=== PATIENT | male | born 1975 | race Caucasian/White ===

== ENCOUNTER 2017-11-14 12:04 | Emergency (ER) | payer SELFPAY ==
[~2017-11-14] VITALS: Ht 182.9 cm; Wt 94.9 kg
[2017-11-14] MEDS ORDERED: HYDROcodone/APAP 5/325 TABLET PO ONE (13:00)
[2017-11-14] MEDS ORDERED: KETOROLAC 30 MG/1 ML IM ONE (13:00)
[2017-11-14] MEDS ORDERED: KETOROLAC 30 MG/1 ML ONE (13:02)
[2017-11-14] MEDS ORDERED: HYDROcodone/APAP 5/325 TABLET ONE (13:02)
[2017-11-14 13:13] LABS: BASOPHILS # (AUTO) 0.03 x10^3/uL (0-0.1); BASOPHILS % (AUTO) 1 % (0-1); EOSINOPHILS # (AUTO) 0.14 x10^3/uL (0-0.4); EOSINOPHILS % (AUTO) 3 % (1-7); LYMPHOCYTES # (AUTO) 1.71 x10^3/uL (1-3.4); LYMPHOCYTES % (AUTO) 32 % (22-44); MD NO; MEAN CORPUSCULAR HEMOGLOBIN 32.9 pg (27.5-34.5); MEAN CORPUSCULAR HGB CONC 34.1 g/dL (33.2-36.2); MEAN CORPUSCULAR VOLUME 96.4 fL (81-97); MEAN PLATELET VOLUME 9.9 fL (7.4-10.4); MONOCYTES # (AUTO) 0.37 x10^3/uL (0.2-0.8); MONOCYTES % (AUTO) 7 % (2-9); NEUTROPHILS # (AUTO) 3.11 x10^3/uL (1.8-6.8); NEUTROPHILS % (AUTO) 58 % (42-75); PLATELET COUNT 194 x10^3/uL (130-400); RED BLOOD COUNT 4.68 x10^6/uL (4.38-5.82); RED CELL DISTRIBUTION WIDTH 12.8 % (9.4-14.8)
[2017-11-14 13:14] LABS: MICROSCOPIC NOT IND
[2017-11-14 13:18] LABS: CULTURE INDICATED? NO
[2017-11-14 13:23] LABS: ALANINE AMINOTRANSFERASE 32 U/L (12-78); ALBUMIN 3.8 g/dL (3.4-5.0); ANION GAP 8 mmol/L (5-15); CALCIUM 8.5 mg/dL (8.5-10.1); CHLORIDE 108 mmol/L (98-107); CREATININE 0.99 mg/dL (0.7-1.3)
[2017-11-14 13:25] LABS: ALKALINE PHOSPHATASE 53 U/L (45-117); BILIRUBIN,TOTAL 0.8 mg/dL (0.2-1.0); TOTAL PROTEIN 7.1 g/dL (6.4-8.2)
[2017-11-14 15:04] VITALS: BP 115/59
== END 2017-11-14 15:07 | disposition home or self-care (01) ==
LOC: ED 13:43
DX: K59.00 Constipation, unspecified (principal)
CPT/HCPCS: 36415; 74176; 80053; 81003; 83605; 85025; 96372; 99285; J1885

== ENCOUNTER 2018-01-09 13:21 | Emergency (ER) | payer OTHER ==
[~2018-01-09] VITALS: Ht 180.3 cm; Wt 90.0 kg
[2018-01-09 13:28] VITALS: BP 112/70
[2018-01-09] MEDS ORDERED: FLUORESCEIN OPHTHALMIC 1 MG STRIP ONE (14:09)
[2018-01-09] MEDS ORDERED: PROPARACAINE OPHTH 0.5%, 15ML ONE (14:09)
[2018-01-09] MEDS ORDERED: FLUORESCEIN OPHTHALMIC 1 MG STRIP EACHEYE ONE (14:30)
[2018-01-09] MEDS ORDERED: PROPARACAINE OPHTH 0.5%, 15ML EACHEYE ONE (14:30)
== END 2018-01-09 14:57 | disposition home or self-care (01) ==
LOC: ED 14:30
DX: S05.01XA Injury of conjunctiva and corneal abrasion without foreign body, right eye, initial encounter (principal); Z87.891 Personal history of nicotine dependence; W25.XXXA Contact with sharp glass, initial encounter; Y93.89 Activity, other specified; Y92.89 Other specified places as the place of occurrence of the external cause; Y99.8 Other external cause status
CPT/HCPCS: 99283

== ENCOUNTER 2019-12-01 08:17 | Emergency (ER) | payer MEDICAID, OTHER ==
[~2019-12-01] VITALS: Ht 180.3 cm; Wt 97.9 kg
[~2019-12-01 08:17] MED LIST: AMOX1TAB64 PO; DOXY100C PO
[2019-12-01 08:20] VITALS: BP 131/78
[2019-12-01] MEDS ORDERED: FLUORESCEIN OPHTHALMIC 1 MG STRIP ONE (08:45)
[2019-12-01] MEDS ORDERED: FLUORESCEIN OPHTHALMIC 1 MG STRIP EACHEYE ONE (09:00)
[2019-12-01] MEDS ORDERED: PROPARACAINE OPHTH 0.5%, 15ML EACHEYE ONE (09:00)
[2019-12-01] MEDS ORDERED: DIPH,PERTUSS(ACELL),TET VAC/PF 0.5 ML IM-VACC ONE ×2 (09:11→09:30)
--- NOTE | 2019-12-01 09:26 | NUR ---
task RN note: report taken from SAMIRA Weldon. tdap admin per emar, pt tolerated well. pt given dc instructions and script, educated regarding eye drop rx. pt a&o, resps even and unlabored, nadn. pt amb to dc desk with steady gait. all questions answered.
== END 2019-12-01 09:25 | disposition home or self-care (01) ==
LOC: ED 08:40
DX: S05.02XA Injury of conjunctiva and corneal abrasion without foreign body, left eye, initial encounter (principal); X58.XXXA Exposure to other specified factors, initial encounter; Y93.89 Activity, other specified; Y92.89 Other specified places as the place of occurrence of the external cause; Y99.8 Other external cause status
CPT/HCPCS: 90471; 90715

== ENCOUNTER 2020-02-27 11:41 | Inpatient (IN) | payer MEDICAID ==
[~2020-02-27] VITALS: Ht 180.3 cm; Wt 98.7 kg
--- NOTE | 2020-02-27 12:07 | NUR ---
PATIENT ARRIVES TO HOSPITAL WITH SOB THAT BEGAN TODAY. HE STATES HE HAS SOME ANXIETY ABOUT COMING TO HOSPITAL. PATIENT TALKS COMPLETE SENTENCES, AND 100% ON ROOM AIR, [place] AT 22.
[2020-02-27] MEDS ORDERED: CYPIONATE (12:14)
[2020-02-27 12:33] LABS: BASOPHILS # (AUTO) 0.06 x10^3/uL (0-0.1); BASOPHILS % (AUTO) 1 % (0-1); EOSINOPHILS # (AUTO) 0.17 x10^3/uL (0-0.4); EOSINOPHILS % (AUTO) 3 % (1-7); LYMPHOCYTES # (AUTO) 2.27 x10^3/uL (1-3.4); LYMPHOCYTES % (AUTO) 34 % (22-44); MD NO; MEAN CORPUSCULAR HEMOGLOBIN 32.9 pg (27.5-34.5); MEAN CORPUSCULAR HGB CONC 33.5 g/dL (33.2-36.2); MEAN CORPUSCULAR VOLUME 98.2 fL (81-97); MEAN PLATELET VOLUME 9.6 fL (7.4-10.4); MONOCYTES # (AUTO) 0.45 x10^3/uL (0.2-0.8); MONOCYTES % (AUTO) 7 % (2-9); NEUTROPHILS # (AUTO) 3.81 x10^3/uL (1.8-6.8); NEUTROPHILS % (AUTO) 56 % (42-75); PLATELET COUNT 215 x10^3/uL (130-400); RED BLOOD COUNT 5.42 x10^6/uL (4.38-5.82); RED CELL DISTRIBUTION WIDTH 13.3 % (9.4-14.8)
--- NOTE | 2020-02-27 12:40 | NUR ---
patient states no pain at this time.
[2020-02-27 12:43] LABS: ALBUMIN 3.5 g/dL (3.4-5.0); ANION GAP 7 mmol/L (5-15); CALCIUM 8.6 mg/dL (8.5-10.1); CHLORIDE 107 mmol/L (98-107); CREATININE 1.49 mg/dL (0.7-1.3)
[2020-02-27 12:51] LABS: TROPONIN I 0.222 ng/mL (0.000-0.045)
--- NOTE | 2020-02-27 12:51 | NUR ---
critical trope 0.22 reported to Kun Luna
--- NOTE | 2020-02-27 14:00 | NUR ---
UPDATED ISOLATION STATUS DROPLET CO19 R/O. DENIES PAIN NOW. IN BED RAILS UP.
[2020-02-27] MEDS ORDERED: ONDANSETRON ODT 4 MG PO PRN (15:30)
[2020-02-27] MEDS ORDERED: ENALAPRILAT 1.25 MG/ML, 2ML IVPush PRN (15:30)
[2020-02-27] MEDS ORDERED: ACETAMINOPHEN 325 MG TABLET PO PRN (15:30)
[2020-02-27] MEDS ORDERED: ONDANSETRON 2MG/ML, 2ML IVPush PRN (15:30)
[2020-02-27] MEDS ORDERED: GUAIFENESIN/DM 200-20MG, 10ML UDC PO PRN (15:30)
[2020-02-27] MEDS ORDERED: ENOXAPARIN 40 MG/0.4 ML ONE (15:41)
[2020-02-27] MEDS: ENOXAPARIN 40 MG/0.4 ML SQ SCH (15:46)
[2020-02-27] MEDS ORDERED: MORPHINE SULFATE 4 MG/ML, 1ML ONE ×2 (15:56→19:47)
[2020-02-27] MEDS: morphine SULFATE 10 MG/ML, 1ML IVPush PRN ×2 (15:57→19:53)
[2020-02-27] MEDS ORDERED: CEFTRIAXONE 1,000 MG IV SCH (16:00)
--- NOTE | 2020-02-27 16:02 | NUR ---
patient taken to ct scan. patient having all over body pain and chest pain, requested medication to help him relax and stop pain, medicated prn.
[2020-02-27 16:17] LABS: TROPONIN I 0.227 ng/mL (0.000-0.045)
[2020-02-27] MEDS ORDERED: OMNIPAQUE 350 MG/ML, 100ML BOTTLE ONE (16:19)
[2020-02-27] MEDS ORDERED: CEFTRIAXONE PMX 1GM/50ML 50 ML ONE (16:32)
--- NOTE | 2020-02-27 16:42 | NUR ---
FEELS IMPROVED PAIN NOW IS A 3 OF 10. IN BED, MEDICATED. AWAITING ROOM
--- NOTE | 2020-02-27 18:07 | NUR ---
cardiac diet given
--- NOTE | 2020-02-27 18:11 | NUR ---
ATE ALL OF DIET TRAY. CALM. FEELS IMPROVED
--- NOTE | 2020-02-27 18:54 | NUR ---
REPORT RECEIVED FROM SAMIRA WEST. PLAN OF CARE DISCUSSED
--- NOTE | 2020-02-27 18:55 | NUR ---
report to Tiara HOGAN
--- NOTE | 2020-02-27 20:00 | NUR ---
PATIENT MEDICATED PER EMAR FOR BREAKTHROUGH PAIN. TOLERATED WELL. VSS, NADN
[2020-02-27] MEDS: FAMOTIDINE 20 MG TABLET PO SCH (21:00)
--- NOTE | 2020-02-27 21:11 | NUR ---
PATIENT RESTING, RESPIRATIONS EVEN AND UNLABORED, VSS, NADN
--- NOTE | 2020-02-27 21:28 | NUR ---
THIS RN SPOKE WITH CHANO, RN E [employer] AND [facility] ADMITTING TEAM ABOUT RAPID COVID BEING NEGATIVE. [facility] ADMITTING MD STATES "[place] OF BEING COVID POSITIVE IS VERY LOW" AND FEELS COMFORTABLE SENDING PATIENT TO REGULAR NON-COVID R/O FLOOR. THROUGHPUT RN NOTIFIED. Addendum: 02/27/20 at 2130 by ANDERSON PATIENT IS NONFEBRILE AND ASYMPTOMATIC.
[2020-02-27] MEDS ORDERED: FAMOTIDINE 20 MG TABLET ONE (21:45)
[2020-02-27 22:05] LABS: TROPONIN I 0.238 ng/mL (0.000-0.045)
--- NOTE | 2020-02-27 22:10 | NUR ---
REPORT GIVEN TO SAMIRA DU. PLAN OF CARE DISCUSSED
[2020-02-27 22:29] VITALS: BP 97/58
[2020-02-28 01:29] VITALS: BP 117/81
[2020-02-28 06:37] LABS: BASOPHILS # (AUTO) 0.07 x10^3/uL (0-0.1); BASOPHILS % (AUTO) 1 % (0-1); EOSINOPHILS # (AUTO) 0.18 x10^3/uL (0-0.4); EOSINOPHILS % (AUTO) 2 % (1-7); LYMPHOCYTES # (AUTO) 2.69 x10^3/uL (1-3.4); LYMPHOCYTES % (AUTO) 32 % (22-44); MD NO; MEAN CORPUSCULAR HGB CONC 33.5 g/dL (33.2-36.2); MEAN CORPUSCULAR VOLUME 98.6 fL (81-97); MEAN PLATELET VOLUME 9.6 fL (7.4-10.4); MONOCYTES # (AUTO) 0.47 x10^3/uL (0.2-0.8); MONOCYTES % (AUTO) 6 % (2-9); NEUTROPHILS # (AUTO) 5.05 x10^3/uL (1.8-6.8); NEUTROPHILS % (AUTO) 60 % (42-75); PLATELET COUNT 212 x10^3/uL (130-400); RED BLOOD COUNT 5.64 x10^6/uL (4.38-5.82)
[2020-02-28 06:47] LABS: ANION GAP 4 mmol/L (5-15); CALCIUM 9.1 mg/dL (8.5-10.1); CHLORIDE 104 mmol/L (98-107); CREATININE 1.48 mg/dL (0.7-1.3)
[2020-02-28 07:55] VITALS: BP 120/82
[2020-02-28] MEDS: SODIUM CHLORIDE 0.9% 1,000 ML IV SCH ×2 (10:12→19:02)
[2020-02-28] MEDS: FAMOTIDINE 20 MG TABLET PO SCH ×2 (10:12→20:55)
[2020-02-28] MEDS: morphine SULFATE 10 MG/ML, 1ML IVPush PRN ×2 (10:13→15:57)
[2020-02-28 13:09] VITALS: BP 112/76
[2020-02-28] MEDS: ENOXAPARIN 40 MG/0.4 ML SQ SCH (16:03)
[2020-02-28] MEDS: CEFTRIAXONE PMX 1GM/50ML 50 ML IV SCH (17:09)
[2020-02-28 19:34] VITALS: BP 119/82
[2020-02-28] MEDS: ZOLPIDEM 5MG TABLET PO PRN (23:41)
[2020-02-29 00:21] VITALS: BP 124/80
[2020-02-29] MEDS: morphine SULFATE 10 MG/ML, 1ML IVPush PRN ×4 (01:57→20:23)
[2020-02-29] MEDS: SODIUM CHLORIDE 0.9% 1,000 ML IV SCH (02:44)
[2020-02-29 04:23] LABS: BASOPHILS # (AUTO) 0.04 x10^3/uL (0-0.1); BASOPHILS % (AUTO) 0 % (0-1); EOSINOPHILS # (AUTO) 0.16 x10^3/uL (0-0.4); EOSINOPHILS % (AUTO) 2 % (1-7); LYMPHOCYTES # (AUTO) 3.07 x10^3/uL (1-3.4); LYMPHOCYTES % (AUTO) 32 % (22-44); MD NO; MEAN CORPUSCULAR HEMOGLOBIN 33.1 pg (27.5-34.5); MEAN CORPUSCULAR HGB CONC 33.2 g/dL (33.2-36.2); MEAN CORPUSCULAR VOLUME 99.7 fL (81-97); MEAN PLATELET VOLUME 9.6 fL (7.4-10.4); MONOCYTES # (AUTO) 0.51 x10^3/uL (0.2-0.8); MONOCYTES % (AUTO) 5 % (2-9); NEUTROPHILS # (AUTO) 5.88 x10^3/uL (1.8-6.8); NEUTROPHILS % (AUTO) 61 % (42-75); PLATELET COUNT 196 x10^3/uL (130-400); RED BLOOD COUNT 5.55 x10^6/uL (4.38-5.82); RED CELL DISTRIBUTION WIDTH 13.5 % (9.4-14.8)
[2020-02-29 04:24] LABS: ANION GAP 4 mmol/L (5-15); CHLORIDE 107 mmol/L (98-107)
[2020-02-29 04:27] LABS: ALANINE AMINOTRANSFERASE 40 U/L (12-78); ALKALINE PHOSPHATASE 61 U/L (45-117); BILIRUBIN,TOTAL 1.5 mg/dL (0.2-1.0); CREATININE 1.41 mg/dL (0.7-1.3); TOTAL PROTEIN 6.3 g/dL (6.4-8.2)
[2020-02-29 06:37] VITALS: BP 120/77
[2020-02-29] MEDS: FAMOTIDINE 20 MG TABLET PO SCH ×2 (08:09→20:22)
[2020-02-29] MEDS: LISINOPRIL 5 MG TABLET PO SCH (08:09)
[2020-02-29] MEDS ORDERED: REGADENOSON 0.4 MG/5 ML SYRINGE ONE (08:22)
[2020-02-29 12:58] VITALS: BP 120/86
[2020-02-29 13:21] LABS: CHOL/HDL RATIO 3.4; LDL/HDL RATIO 1.3 (0.5-3.0)
[2020-02-29] MEDS: ENOXAPARIN 40 MG/0.4 ML SQ SCH (16:18)
[2020-02-29] MEDS: CEFTRIAXONE PMX 1GM/50ML 50 ML IV SCH (16:18)
[2020-02-29] MEDS: CARVEDILOL 3.125 MG TABLET PO SCH (16:52)
[2020-02-29 18:35] VITALS: BP 119/80
[2020-02-29] MEDS: SPIRONOLACTONE 25 MG TABLET PO SCH (20:22)
[2020-02-29] MEDS: ZOLPIDEM 5MG TABLET PO PRN (20:22)
[2020-03-01] MEDS: ZOLPIDEM 5MG TABLET PO PRN (01:06)
[2020-03-01 01:11] VITALS: BP 122/89
[2020-03-01] MEDS: morphine SULFATE 10 MG/ML, 1ML IVPush PRN (03:26)
[2020-03-01 05:51] VITALS: BP 124/87
[2020-03-01] MEDS: CARVEDILOL 3.125 MG TABLET PO SCH (05:58)
[2020-03-01 06:42] LABS: ANION GAP 5 mmol/L (5-15); CALCIUM 8.8 mg/dL (8.5-10.1); CHLORIDE 105 mmol/L (98-107)
[2020-03-01 06:55] VITALS: BP 130/90
[2020-03-01] MEDS ORDERED: FUROSEMIDE 20 MG/2 ML IV ONE (07:30)
[2020-03-01] MEDS ORDERED: LISI5TAB7 PO (09:28)
[2020-03-01] MEDS ORDERED: FURO-93 PO (09:28)
[2020-03-01] MEDS ORDERED: CARV6.2512 PO (09:28)
[2020-03-01] MEDS ORDERED: SPIR25TA PO (09:28)
[2020-03-01] MEDS: LISINOPRIL 5 MG TABLET PO SCH (10:09)
[2020-03-01] MEDS: FAMOTIDINE 20 MG TABLET PO SCH (10:09)
[2020-03-01] MEDS: SPIRONOLACTONE 25 MG TABLET PO SCH (10:09)
[2020-03-01] MEDS ORDERED: CARVEDILOL 6.25 MG TABLET PO SCH (18:00)
== END 2020-03-01 10:34 | disposition home or self-care (01) | DRG 292 ==
LOC: ED 13:21 → EDIP 13:37 → 4WST 22:23 → DCLOUNGE 03-01 10:26
PROVIDERS: ADMIT Hospitalist; ATTEND Hospitalist
DX: I50.21 Acute systolic (congestive) heart failure (principal); I42.9 Cardiomyopathy, unspecified; F15.10 Other stimulant abuse, uncomplicated; D75.1 Secondary polycythemia; E86.0 Dehydration; E78.5 Hyperlipidemia, unspecified; R91.8 Other nonspecific abnormal finding of lung field; I08.1 Rheumatic disorders of both mitral and tricuspid valves; N28.9 Disorder of kidney and ureter, unspecified; I27.20 Pulmonary hypertension, unspecified; Z20.828 Contact with and (suspected) exposure to other viral communicable diseases; Z86.72 Personal history of thrombophlebitis; Z87.891 Personal history of nicotine dependence
CPT/HCPCS: 36415; 71045; 71275; 78452; 80048; 80053; 80061; 82040; 83880; 84484; 85025; 85379; 87040; 87635; 93005; 93017; 93308; 93321; 93325; 96372; 96374; 96375; 99285; G0378; J0696; J1650; J2785; Q9967; A9502; J1940; J2270; J7030

== ENCOUNTER → 2020-06-02 | Outpatient (CLI) | payer MEDICAID ==
[~2020-06-02] MED LIST changes: +CARV6.2512 PO; +CYPIONATE; +FURO-93 PO; +LISI5TAB7 PO; +SPIR25TA PO
== END | disposition home or self-care (01) ==
LOC: CFH 06:40
PROVIDERS: ATTEND Internal Medicine Cardiovascular Disease
DX: I34.0 Nonrheumatic mitral (valve) insufficiency (principal); I42.7 Cardiomyopathy due to drug and external agent
CPT/HCPCS: 93306

== ENCOUNTER → 2020-11-13 | Outpatient (CLI) | payer MEDICAID | END | disposition home or self-care (01) | LOC: CFH 07:32 | PROVIDERS: ATTEND Physician Assistant Medical | DX: I42.7 Cardiomyopathy due to drug and external agent (principal) | CPT/HCPCS: 93306 ==